=== PATIENT | male | born 1975 | race Caucasian/White ===

== ENCOUNTER 2016-07-05 09:10 | Emergency (ER) | payer BC ==
[~2016-07-05] VITALS: Ht 182.9 cm; Wt 85.3 kg
[~2016-07-05 09:10] MED LIST: BISM262C5 PO
[2016-07-05 09:16] VITALS: TEMP 36.6; Ht 182.9 cm; Wt 85.3 kg
[2016-07-05] MEDS ORDERED: CETI10TA73 PO (09:40)
[2016-07-05] MEDS ORDERED: DIPHTHERIA/TETANUS/PERTUSSIS 0.5 ML SYR/VIAL IM. ONE (09:45)
[2016-07-05] MEDS ORDERED: XYLOCAINE 1%/SOD BICARB 20 ML VIAL INFIL ONE (09:45)
--- NOTE | 2016-07-05 09:53 | EMERGENCY ROOM VISIT NOTE ---
ED Visit Note First contact with patient: 09:21 CHIEF COMPLAINT: Infection of the abdominal wall HISTORY OF PRESENT ILLNESS: This 40-year-old male patient presents to the emergency department ambulatory after they noticed a hard, red, tender area to the anterior abdomen. It is slowly getting larger, more painful and tender. No fever, chills, or loss of appetite. There has been mild drainage from the area. There was no injury to the area preceding the infection. They rate the pain as sharp and 6/10. Tetanus shot is not up to date. They have tried antibiotic ointment. The patient is not diabetic. The patient has no history of subcutaneous abscesses. REVIEW OF SYSTEMS: A 6 system review of systems was completed with positives and pertinent negatives listed in the HPI. ALLERGIES: No known allergies MEDICATIONS: None PMH: None SOCIAL HISTORY: The patient is employed. He does not smoke. PHYSICAL EXAM: Vital Signs: Reviewed Nurse's notes, vital signs stable. GENERAL : Said 40-year-old male, no acute distress, non toxic in appearance, well- developed well-nourished. SKIN: There is an erythematous indurated area to the abdomen which measures about 3 cm in diameter. It is fluctuant but there is no pointing or drainage. There is a zone of inflammation around it but no lymphangitis. Capillary refill less than 2 seconds. MUSCULOSKELETAL: There is no limitation of the range of motion of the lower extremities. EMERGENCY DEPARTMENT COURSE: I examined the patient. After saline and Betadine cleansing and 4 mL of 1% buffered lidocaine anesthesia, the abscess was incised with a number 11 scalpel blade. A large amount of purulent material was released with more expressed by pressure. A swab was obtained for culture. The abscess cavity was further probed with a needle mechanic welder truck driver and the deep pocket expressed. The abscess cavity was then copiously irrigated with sterile saline under pressure. The area was then packed with bacitracin soaked packing. The area was cleaned with sterile saline and dressed with bacitracin and a bulky bandage. The patient tolerated the procedure poorly and had a vagal episode. He did not pass out but was monitored until feeling better. The patient was discharged home in stable condition. The patient will be placed on doxycycline and Keflex. The rash does display some degree of central clearing. Although considered less likely, the doxycycline would cover for potential Lyme disease. He should take the medication until finished. He should return in 48 hours for recheck and packing removal. He should return with any worsening symptoms. Problem List Medical Problems: (1) Chronic back pain Status: Chronic Surgical Problems: (1) H/O foot surgery Status: Chronic Current/Historical Medications Scheduled Cephalexin Monohydrate (Keflex), 500 MG PO TID Cetirizine Hcl (All Day Allergy), 10 MG PO DAILY Doxycycline (Monohydrate) (Doxycycline Monohydrate), 100 MG PO BID Allergies Coded Allergies: No Known Allergies (Verified , 07/05/16) Vital Signs Date Time Temp Pulse Resp B/P Pulse Ox O2 Delivery O2 Flow Rate FiO2 07/05/16 11:40 77 20 127/84 98 07/05/16 09:16 36.6 100 18 160/104 100 Room Air Medications Administered Medications (Trade) Dose Ordered Sig/Herman Route Start Time Stop Time Status Last Admin Dose Admin Diphtheria/ Pertussis/Tetanus Vacc (Adacel Inj) 0.5 ml ONCE ONCE IM. 07/05/16 09:45 07/05/16 09:47 DC 07/05/16 09:55 0.5 ML Lidocaine HCl (Buffered Lidocaine 1% Inj) 20 ml NOW ONCE INFIL 07/05/16 09:45 07/05/16 09:47 DC 07/05/16 09:54 20 ML Departure Information Impression Primary Impression: Abscess Dispostion Home / Self-Care Condition GOOD Prescriptions Cephalexin Monohydrate (Keflex) 500 Mg Cap 500 MG PO TID for 10 Days, #30 CAP Prov: Caterina Allen PA-C 07/05/16 Doxycycline (Monohydrate) (DOXYCYCLINE MONOHYDRATE) 100 Mg Tab 100 MG PO BID for 10 Days, #20 TABS Prov: Caterina Allen PA-C 07/05/16 Referrals Antonio Hayden M.D. ([facility]) (PCP) Patient Instructions ED Abscess IandD, My [facility] Additional Instructions Return in 48 hours for a wound recheck and packing removal. Remove the outer dressing if it becomes soiled or wet. Ibuprofen 600 mg every 6-8 hours for moderate pain. doxycycline and Keflex as prescribed, until finished. Return sooner with any worsening redness, swelling, fevers.
[2016-07-05] MEDS ORDERED: DOXY100T17 PO (10:43)
[2016-07-05] MEDS ORDERED: CEPH500C PO (10:43)
[2016-07-05 11:40] VITALS: BP 127/84; PULSE 77; O2SAT 98
--- NOTE | 2016-07-07 13:47 | Pharmacy Progress Note ---
ED Pharmacist Culture FollowUp Date of Service: July 07, 2016. Patient was sent home with a prescription for cephalexin and doxycycline. Doxycycline should cover the MRSA growing from the patient's wound culture ( based on reported sensitivity to tetracycline), but cephalexin will not. Patient was seen in ED for follow-up on 07/07 and was instructed to continue doxycycline but stop cephalexin.
== END 2016-07-05 11:49 | disposition home or self-care (01) ==
LOC: C.EDB 09:12
DX: L02.211 Cutaneous abscess of abdominal wall (principal); Z98.890 Other specified postprocedural states; Z23 Encounter for immunization

== ENCOUNTER 2016-07-07 09:17 | Emergency (ER) | payer BC ==
[~2016-07-07] VITALS: Ht 182.9 cm; Wt 85.5 kg
[~2016-07-07 09:17] MED LIST changes: -BISM262C5 PO; +CEPH500C PO; +CETI10TA73 PO; +DOXY100T17 PO
[2016-07-07 09:19] VITALS: TEMP 36.7; Ht 182.9 cm; Wt 85.5 kg
--- NOTE | 2016-07-07 09:43 | EMERGENCY ROOM VISIT NOTE ---
History Report prepared by Scribe: Shivam Sagastume Under the Supervision of: Dr. Yara Lucero M.D. First contact with patient: 09:30 Chief Complaint: PACKING REMOVAL Stated Complaint: REMOVAL OF PACKING Nursing Triage Summary: Pt states he needs packing removed from right abdomen. Placed Tuesday History of Present Illness The patient is a 40 year old male who presents to the Emergency Room for packing removal. The patient had an abscess drained on his abdomen two days ago. He was started on Keflex and Doxycycline. The patient states that the area feels a lot better. Source of History: patient Onset: two days ago Position: abdomen Quality: other (packing removal) Timing: other (acute) Review of Systems See HPI for pertinent positives & negatives. A total of 6 systems reviewed and were otherwise negative. Past Medical & Surgical Medical Problems: (1) Chronic back pain Surgical Problems: (1) H/O foot surgery Family History FH: cancer Social History Smoking Status: Never Smoker Marital Status: Housing Status: lives with family Occupation Status: employed Current/Historical Medications Scheduled Cephalexin Monohydrate (Keflex), 500 MG PO TID Cetirizine Hcl (All Day Allergy), 10 MG PO DAILY Doxycycline (Monohydrate) (Doxycycline Monohydrate), 100 MG PO BID Allergies Coded Allergies: No Known Allergies (Verified , 07/07/16) Physical Exam Vital Signs Date Time Temp Pulse Resp B/P (MAP) Pulse Ox O2 Delivery O2 Flow Rate FiO2 07/07/16 09:59 84 16 150/95 98 Room Air 07/07/16 09:19 36.7 87 16 146/103 99 Room Air Physical Exam Vital signs reviewed. General: Well-appearing male, in no significant distress. Abdomen: Soft, nontender, nondistended, positive bowel sounds. Neurologic: Patient awake alert and oriented x 3. Skin: Pencil eraser-sized wound to the lower abdomen with mild surrounding erythema, no drainage. Medical Decision & Procedures Procedure The wound on his abdomen was irrigated and cleansed with Betadine and saline. Wound was repacked. Antibiotic dressing applied. The patient tolerated the procedure well. ED Course 0935: Past medical records reviewed. The patient was evaluated in room B10. A complete history and physical examination was performed. 0945: Packing changed. 0955: Discussed the discharge instructions with him. He verbalized understanding and agreement. The patient is ready for discharge. Medical Decision There is no differential diagnosis at this time. Medication Reconciliation: I attest that I have personally reviewed the patient' s current medication list. Blood Pressure Screening: Patient was found to have a mildly elevated blood pressure and was referred to their primary doctor for recheck and further treatment. This pt was evaluated and appeared to be in no distress. Wound was cleansed and repacked as above. Pt was given wound care instructions. Pt will f/u with PCP and return to the ED for worsening of symptoms or any medical concerns. Impression Primary Impression: Change or removal of wound packing Scribe Attestation The scribe's documentation has been prepared under my direction and personally reviewed by me in its entirety. I confirm that the note above accurately reflects all work, treatment, procedures, and medical decision making performed by me. Departure Information Dispostion Home / Self-Care Referrals Antonio Hayden M.D.([facility]) (PCP) Forms HOME CARE DOCUMENTATION FORM, IMPORTANT VISIT INFORMATION, WORK / SCHOOL INSTRUCTIONS Patient Instructions My [facility] Additional Instructions Diagnosis: Change in the wound packing. Discontinue Keflex as prescribed. Continue doxycycline. Wash wound once daily with warm water and gentle soap. Apply antibiotic ointment. Remove the packing in 2 days, Tuesday. Keep wound covered with a bandage. Follow-up with your physician next week for reevaluation. Return to the ER for worsening of symptoms or any medical concerns.
[2016-07-07 09:59] VITALS: BP 150/95; PULSE 84; O2SAT 98
== END 2016-07-07 10:17 | disposition home or self-care (01) ==
LOC: C.EDB 09:18
DX: Z48.00 Encounter for change or removal of nonsurgical wound dressing (principal); L02.211 Cutaneous abscess of abdominal wall; M54.9 Dorsalgia, unspecified; G89.29 Other chronic pain; Z80.9 Family history of malignant neoplasm, unspecified; Z79.899 Other long term (current) drug therapy